=== PATIENT | female | born 1935 | race Caucasian/White ===

== ENCOUNTER → 2017-01-05 | Outpatient (CLI) | payer MEDICARE ==
[~2017-01-05] MED LIST: DENOSUMAB 60 MG/ML 1 ML SYRINGE SQ ONE
[2017-01-05 14:27] VITALS: BP 179/79; PULSE 69; RESP 16; TEMP 97.6
== END | disposition home or self-care (01) ==
LOC: PROCWHC3 14:08
PROVIDERS: ATTEND Family Medicine
DX: M81.0 Age-related osteoporosis without current pathological fracture (principal)
CPT/HCPCS: 96372; J0897

== ENCOUNTER 2019-11-26 13:22 | Inpatient (IN) | payer MEDICARE ==
[2019-11-26] MEDS ORDERED: ACETAMINOPHEN TAB 500 MG TAB PO STA (13:44)
[2019-11-26] MEDS ORDERED: SODIUM CHLORIDE 0.9% 500 ML 500 ML IV ONE (13:44)
--- NOTE | 2019-11-26 14:12 | ED ---
General Adult HPI - General Chief complaint: Fever Stated complaint: Covid Time Seen by Provider: 11/26/19 13:26 Source: patient, RN notes reviewed, old records reviewed Mode of arrival: EMS Limitations: no limitations - History of Present Illness Initial comments: 84-year-old female presenting for evaluation of cough, fever. Patient is coming from assisted living facility where there are several residents with coronavirus. Patient developed a cough last night and was noted to have a fever today. She was sent in for evaluation. Patient's only complaint is sore throat. She denies chest pain. Denies dyspnea. She denies abdominal pain nausea vomiting. - Related Data Home Medications Medication Instructions Recorded Confirmed Hydrocodone/Acetaminophen [[place] 1 tab PO QID PRN 05/25/15 11/26/19 5-325] Acetaminophen [Tylenol] 650 mg PO Q4H PRN MDD 12 tabs/24hr 11/26/19 11/26/19 Acetaminophen [Tylenol] 650 mg PO Q4H PRN MDD 12 tabs/24hr 11/26/19 11/26/19 Cholecalciferol [Vitamin D3 (25 2,000 unit PO DAILY@119911/26/19 11/26/19 Mcg = 1000 Iu)] Citalopram Hydrobromide [CeleXA] 10 mg PO DAILY@119911/26/19 11/26/19 Cyanocobalamin (Vitamin B-12) 1,000 mcg PO HS@199911/26/19 11/26/19 [Vitamin B-12] Diclofenac Sodium Gel [Voltaren 2 gm TOPICAL QID PRN 11/26/19 11/26/19 Gel] Xena-Lanta 485-703-29qi/5ml Susp 15 ml PO BID PRN 11/26/19 11/26/19 Kaolin/Pectin [Kaolin Pectin 2 tsp PO DIRECTED PRN 11/26/19 11/26/19 Suspension] Magnesium Hydroxide [Milk of 2,400 mg PO HS PRN 11/26/19 11/26/19 Magnesia] Melatonin 3 mg PO HS@199911/26/19 11/26/19 Methenamine Hippurate [Hiprex] 0.5 gm PO BID@1199,199911/26/19 11/26/19 Mirtazapine 15 mg PO HS@199911/26/19 11/26/19 Polyethylene Glycol 3350 [Clearlax] 17 gm PO DAILY PRN 11/26/19 11/26/19 guaiFENesin SYRUP 100MG/5ML 10 ml PO Q6H PRN 11/26/19 11/26/19 [Robitussin] Allergies Allergy/AdvReac Type Severity Reaction Status Date / Time celecoxib [From Celebrex] Allergy Unknown Verified 11/26/19 13:46 Review of Systems ROS Statement: Those systems with pertinent positive or pertinent negative responses have been documented in the HPI. ROS Other: All systems not noted in ROS Statement are negative. Past Medical History Past Medical History: Cancer, Hypertension Additional Past Medical History / Comment(s): cataract, skin cancer. History of Any Multi-Drug Resistant Organisms: CRE, Other MDRO Date of last positivie culture/infection: 08/21/19 MDRO Source:: URINE Past Surgical History: Section, Orthopedic Surgery Past Psychological History: No Psychological Hx Reported Smoking Status: Unknown if ever smoked Past Alcohol Use History: None Reported Past Drug Use History: None Reported General Exam Limitations: no limitations General appearance: alert Head exam: Present: atraumatic, normocephalic Eye exam: Present: normal appearance, PERRL ENT exam: Present: mucous membranes dry Neck exam: Present: normal inspection. Absent: tenderness, meningismus Respiratory exam: Present: rhonchi (Bilateral rhonchi) Cardiovascular Exam: Present: normal rhythm, tachycardia GI/Abdominal exam: Present: soft. Absent: distended, tenderness, guarding Extremities exam: Present: normal inspection, normal capillary refill. Absent: pedal edema, calf tenderness Neurological exam: Present: alert. Absent: motor sensory deficit Skin exam: Present: warm, dry, intact. Absent: cyanosis, diaphoretic Course Vital Signs 11/26/19 11/26/19 13:47 14:59 Temperature 101.8 F H 100.3 F H Pulse Rate 106 H 76 Respiratory 20 20 Rate Blood Pressure 195/98 187/94 O2 Sat by Pulse 97 97 Oximetry Medical Decision Making - Medical Decision Making 84-year-old female presenting from outside assisted living facility for evaluation of cough. There was concern for pneumonia. There has been patient's at the facility where she resides with coronavirus. Patient really has no specific complaints, she did complain of some sore throat. She is febrile. She has normal oxygenation on room air. No respiratory distress. Chest x-rays negative for focal pneumonia. She has white blood cell count of 10.6. Creatinine of 1.06 with no baseline. She has a normal lactic acid of 0.9. Coronavirus has been sent these results take approximately 24-48 hours. I did discuss the living situation with the staff at the facility where she resides in the state that patients can be quarantined in the rooms. There is a separate bedroom for each resident and a separate bathroom. Patient remains stable she is a DO NOT RESUSCITATE, DO NOT INTUBATE. I will transfer the patient back to her assisted living facility where she should be quarantined and test results. - Lab Data Result diagrams: 11/26/19 14:03 11/26/19 14:03 Lab Results 11/26/19 11/26/19 11/26/19 Range/Units 14:03 14:03 14:03 WBC 10.6 (3.8-10.6) k/uL RBC 3.97 (3.80-5.40) m/uL Hgb 11.5 (11.4-16.0) gm/dL Hct 36.1 (34.0-46.0) % MCV 90.9 (80.0-100.0) fL MCH 29.1 (25.0-35.0) pg MCHC 31.9 (31.0-37.0) g/dL RDW 13.2 (11.5-15.5) % Plt Count 208 (150-450) k/uL Neutrophils % 87 % Lymphocytes % 7 % Monocytes % 5 % Eosinophils % 0 % Basophils % 0 % Neutrophils # 9.3 H (1.3-7.7) k/uL Lymphocytes # 0.8 L (1.0-4.8) k/uL Monocytes # 0.5 (0-1.0) k/uL Eosinophils # 0.0 (0-0.7) k/uL Basophils # 0.0 (0-0.2) k/uL Sodium 136 L (137-145) mmol/L Potassium 4.2 (3.5-5.1) mmol/L Chloride 105 (98-107) mmol/L Carbon Dioxide 23 (22-30) mmol/L Anion Gap 8 mmol/L BUN 18 H (7-17) mg/dL Creatinine 1.06 H (0.52-1.04) mg/dL Est GFR (CKD-EPI)AfAm 56 (>60 ml/min/1.73 sqM) Est GFR (CKD-EPI)NonAf 48 (>60 ml/min/1.73 sqM) Glucose 112 H (74-99) mg/dL Plasma Lactic Acid Yazan 0.9 (0.7-2.0) mmol/L Calcium 8.8 (8.4-10.2) mg/dL Magnesium 1.7 (1.6-2.3) mg/dL Total Bilirubin 0.5 (0.2-1.3) mg/dL AST 19 (14-36) U/L ALT 6 (4-34) U/L Alkaline Phosphatase 82 (38-126) U/L Total Protein 7.0 (6.3-8.2) g/dL Albumin 3.7 (3.5-5.0) g/dL Disposition Clinical Impression: Viral infection Disposition: HOME SELF-CARE Condition: Fair Instructions (If sedation given, give patient instructions): Fever in Adults (ED), Viral Syndrome (ED) Additional Instructions: I do suspect this patient likely has coronavirus, testing takes approximately 24-48 hours. Please quarantine this patient until test results are available. If test is positive, quarantine for 14 days. Patient should return to the emergency department with bleeding issues. Is patient prescribed a controlled substance at d/c from ED?: No Referrals: Emiliano Bullock MD [Primary Care Provider] - 1-2 days Time of Disposition: 15:07
--- NOTE | 2019-11-26 14:27 | XR ---
EXAMINATION TYPE: XR chest 1V portable DATE OF EXAM: 11/26/2019 COMPARISON: 07/16/2010 INDICATION: Cough TECHNIQUE: Single frontal view of the chest is obtained. FINDINGS: The heart size is normal. The pulmonary vasculature is normal. The lungs are clear. IMPRESSION: 1. No acute pulmonary process.
[2019-11-26 14:31] LABS: Albumin 3.7 g/dL (3.5-5.0); Basophils % (A) 0 %; Calcium 8.8 mg/dL (8.4-10.2); Eosinophils % (A) 0 %; HCT 36.1 % (34.0-46.0); HGB 11.5 gm/dL (11.4-16.0); Lymphocytes # (A) 0.8 k/uL (1.0-4.8); Lymphocytes % (A) 7 %; MCH 29.1 pg (25.0-35.0); MCHC 31.9 g/dL (31.0-37.0); MCV 90.9 fL (80.0-100.0); Magnesium 1.7 mg/dL (1.6-2.3); Mean Platelet Volume 7.2; Monocytes # (A) 0.5 k/uL (0-1.0); Monocytes % (A) 5 %; Neutrophils # (A) 9.3 k/uL (1.3-7.7); Neutrophils % (A) 87 %; Platelet Count 208 k/uL (150-450); Potassium 4.2 mmol/L (3.5-5.1); RBC 3.97 m/uL (3.80-5.40); RDW 13.2 % (11.5-15.5); Total Bilirubin 0.5 mg/dL (0.2-1.3); WBC 10.6 k/uL (3.8-10.6)
[2019-11-26] MEDS ORDERED: NALOXONE 0.4 MG/ML 1 ML VIAL IV PRN (15:38)
--- NOTE | 2019-11-26 15:46 | ED ---
Medical Decision Making - Lab Data Result diagrams: 11/26/19 14:03 11/26/19 14:03 Lab Results 11/26/19 11/26/19 11/26/19 Range/Units 14:03 14:03 14:03 WBC 10.6 (3.8-10.6) k/uL RBC 3.97 (3.80-5.40) m/uL Hgb 11.5 (11.4-16.0) gm/dL Hct 36.1 (34.0-46.0) % MCV 90.9 (80.0-100.0) fL MCH 29.1 (25.0-35.0) pg MCHC 31.9 (31.0-37.0) g/dL RDW 13.2 (11.5-15.5) % Plt Count 208 (150-450) k/uL Neutrophils % 87 % Lymphocytes % 7 % Monocytes % 5 % Eosinophils % 0 % Basophils % 0 % Neutrophils # 9.3 H (1.3-7.7) k/uL Lymphocytes # 0.8 L (1.0-4.8) k/uL Monocytes # 0.5 (0-1.0) k/uL Eosinophils # 0.0 (0-0.7) k/uL Basophils # 0.0 (0-0.2) k/uL Sodium 136 L (137-145) mmol/L Potassium 4.2 (3.5-5.1) mmol/L Chloride 105 (98-107) mmol/L Carbon Dioxide 23 (22-30) mmol/L Anion Gap 8 mmol/L BUN 18 H (7-17) mg/dL Creatinine 1.06 H (0.52-1.04) mg/dL Est GFR (CKD-EPI)AfAm 56 (>60 ml/min/1.73 sqM) Est GFR (CKD-EPI)NonAf 48 (>60 ml/min/1.73 sqM) Glucose 112 H (74-99) mg/dL Plasma Lactic Acid Yazan 0.9 (0.7-2.0) mmol/L Calcium 8.8 (8.4-10.2) mg/dL Magnesium 1.7 (1.6-2.3) mg/dL Total Bilirubin 0.5 (0.2-1.3) mg/dL AST 19 (14-36) U/L ALT 6 (4-34) U/L Alkaline Phosphatase 82 (38-126) U/L Total Protein 7.0 (6.3-8.2) g/dL Albumin 3.7 (3.5-5.0) g/dL Disposition Clinical Impression: Viral infection Disposition: ADMITTED IP TO THIS HOSP Condition: Fair Instructions (If sedation given, give patient instructions): Fever in Adults (ED), Viral Syndrome (ED) Additional Instructions: I do suspect this patient likely has coronavirus, testing takes approximately 24-48 hours. Please quarantine this patient until test results are available. If test is positive, quarantine for 14 days. Patient should return to the emergency department with bleeding issues. Is patient prescribed a controlled substance at d/c from ED?: No Referrals: Emiliano Bullock MD [Primary Care Provider] - 1-2 days Decision to Admit Reason: Admit from EC Decision Date: 11/26/19 Decision Time: 15:46
[2019-11-26] MEDS: ALBUTEROL HFA INHALER INHALATION SCH ×2 (16:38→19:32)
[2019-11-26] MEDS ORDERED: guaiFENesin SYRUP 100MG/5ML 200 MG/10 ML CUP PO PRN (17:30)
[2019-11-26] MEDS ORDERED: polyethylene glycoL 3350 17 GM POWD.PACK PO PRN (17:30)
[2019-11-26] MEDS ORDERED: HYDROcodone/APAP 5-325MG 1 EACH TAB PO PRN (17:30)
[2019-11-26] MEDS ORDERED: DICLOFENAC SODIUM GEL 100 GM TUBE TOPICAL PRN (17:30)
--- NOTE | 2019-11-26 17:39 | P.HPIM ---
History of Present Illness H&P Date: 11/26/19 Chief Complaint: cough Patient's an 84-year-old female with a past medical history of hypertension, arthritis, and chronic indwelling Edwards catheter who was sent in f rom her assisted living secondary to fevers. Apparently there has been multiple residents with COVID 19 per report from the ER. On arrival to the ER here she was noted to be febrile with a temperature of 101.8, pulse of 106, and was satting 97% on room air. Chest x-ray showed no acute process. Initial laboratory analysis showed a sodium of 136, BUN 18, creatinine 1.06. A coronavirus PCR was sent and is pending. Patient was placed in observation for Covid 19 infection. Patient is DO NOT RESUSCITATE which was confirmed by the emergency department physician. Patient seen and examined at bedside. She states that yesterday she started having a nonproductive cough and sore throat. She denies any overt shortness of breath, runny nose, stuffy nose. She was having some diarrhea today. She has not had loss of taste or smell. She feels as though she is eating and drinking well. She states she has had a chronic indwelling Edwards for the past year but she is unsure the exact reason. She states she does not use a cane or a walker but is just learning to walk again. She states that since being in the facility she has become more more week. Review of Systems Pertinent positives and negatives as discussed in HPI, a complete review of systems was performed and all other systems are negative. Past Medical History Past Medical History: Cancer, Hypertension Additional Past Medical History / Comment(s): cataract, skin cancer. History of Any Multi-Drug Resistant Organisms: CRE, Other MDRO Date of last positivie culture/infection: 08/21/19 MDRO Source:: URINE Past Surgical History: Section, Orthopedic Surgery Past Psychological History: No Psychological Hx Reported Smoking Status: Unknown if ever smoked Past Alcohol Use History: None Reported Past Drug Use History: None Reported - Past Family History Father Family Medical History: No Reported History Mother Family Medical History: No Reported History Medications and Allergies Home Medications Medication Instructions Recorded Confirmed Type Hydrocodone/Acetaminophen [[place] 1 tab PO QID PRN 05/25/15 11/26/19 History 5-325] Acetaminophen [Tylenol] 650 mg PO Q4H PRN MDD 12 tabs/24hr 11/26/19 11/26/19 History Acetaminophen [Tylenol] 650 mg PO Q4H PRN MDD 12 tabs/24hr 11/26/19 11/26/19 History Cholecalciferol [Vitamin D3 (25 2,000 unit PO DAILY@119911/26/19 11/26/19 History Mcg = 1000 Iu)] Citalopram Hydrobromide [CeleXA] 10 mg PO DAILY@119911/26/19 11/26/19 History Cyanocobalamin (Vitamin B-12) 1,000 mcg PO HS@199911/26/19 11/26/19 History [Vitamin B-12] Diclofenac Sodium Gel [Voltaren 2 gm TOPICAL QID PRN 11/26/19 11/26/19 History Gel] Xena-Lanta 107-526-72ip/5ml Susp 15 ml PO BID PRN 11/26/19 11/26/19 History Kaolin/Pectin [Kaolin Pectin 2 tsp PO DIRECTED PRN 11/26/19 11/26/19 History Suspension] Magnesium Hydroxide [Milk of 2,400 mg PO HS PRN 11/26/19 11/26/19 History Magnesia] Melatonin 3 mg PO HS@199911/26/19 11/26/19 History Methenamine Hippurate [Hiprex] 0.5 gm PO BID@1199,199911/26/19 11/26/19 History Mirtazapine 15 mg PO HS@199911/26/19 11/26/19 History Polyethylene Glycol 3350 [Clearlax] 17 gm PO DAILY PRN 11/26/19 11/26/19 History guaiFENesin SYRUP 100MG/5ML 10 ml PO Q6H PRN 11/26/19 11/26/19 History [Robitussin] Allergies Allergy/AdvReac Type Severity Reaction Status Date / Time celecoxib [From Celebrex] Allergy Unknown Verified 11/26/19 13:46 Physical Exam Osteopathic Statement: *. No significant issues noted on an osteopathic structural exam other than those noted in the History and Physical/Consult. Vitals: Vital Signs Temp Pulse Resp BP Pulse Ox 11/26/19 16:20 99.1 F 69 18 117/86 97 11/26/19 14:59 100.3 F H 76 20 187/94 97 11/26/19 13:47 101.8 F H 106 H 20 195/98 97 Intake and Output 11/26/19 11/26/19 11/26/19 06:59 14:59 22:59 Other: Weight 47.673 kg General: non toxic, no distress, appears older than stated age, frail, cachectic, temporal wasting Derm: warm, dry Head: atraumatic, normocephalic, symmetric Eyes: EOMI, no lid lag, anicteric sclera, pupils equal round reactive to light ENT: Nose and ears atraumatic, no thrush, no pharyngeal erythema Neck: No thyromegaly, no cervical lymphadenopathy, trachea midline, supple Mouth: no lip lesion, mucus membranes moist Cardiovascular: S1S2 reg, no murmur, positive posterior tibial pulse bilateral, no edema, capillary refill less than 2 seconds Lungs: Rhonchi bilateral, no wheeze, no accessory muscle use Abdominal: soft, nontender to palpation, no guarding, no appreciable organomegaly, normal bowel sounds, Edwards catheter in place Ext: no gross muscle atrophy, muscle strength muscle strength 4 out of 5 in all 4 extremities, no contractures Neuro: CN II-XI grossly intact, light touch intact all 4 extremities, finger to nose on the right Psych: Alert, oriented, appropriate affect Results CBC & Chem 7: 11/26/19 14:03 11/26/19 14:03 Labs: Abnormal Lab Results - Last 24 Hours (Table) 11/26/19 11/26/19 Range/Units 14:03 14:03 Neutrophils # 9.3 H (1.3-7.7) k/uL Lymphocytes # 0.8 L (1.0-4.8) k/uL Sodium 136 L (137-145) mmol/L BUN 18 H (7-17) mg/dL Creatinine 1.06 H (0.52-1.04) mg/dL Glucose 112 H (74-99) mg/dL Chest x-ray: report reviewed Thrombosis Risk Factor Assmnt - DVT/VTE Prophylaxis DVT/VTE Prophylaxis: Low risk, early ambulation encouraged Assessment and Plan Assessment: Upper respiratory tract infection with concern for occult at 19 -Await Ng virus PCR -Check d-dimer, ferritin, LDH, CPK -Will not check troponins would not alter the course of current level of care -Monitor for signs of hypoxia and-we will repeat chest x-ray in a.m. Arthritis -Continue with patient's [place] and dalteparin gel Insomnia -Continue with Remeron and melatonin The patient is placed in observation with an anticipated less than 2 midnight stay for evaluation of URI. Surrogate decision-maker: Daughter CODE STATUS: DNR DVT prophylaxis: lOVENOX Discussed with: Patient, nursing, ED physician Anticipated discharge date: in AM Anticipated discharge place: Assisted living A total of 45 minutes was spent on the care of this complex patient more than 50% of the time was spent in counseling and care coordination.
[2019-11-26 17:59] LABS: C Reactive Protein 45.8 mg/L (<10.0)
[2019-11-26] MEDS: MELATONIN 3 MG TABLET PO SCH ×2 (22:27→22:28)
[2019-11-26] MEDS: SODIUM CHLORIDE 0.9% 1,000 ML IV SCH (22:28)
[2019-11-26] MEDS: MIRTAZAPINE 15 MG TAB PO SCH (22:29)
[2019-11-26] MEDS: NON FORMULARY DRUG (Methenamine Hippurate [Hiprex] 1 GM Tablet) PO SCH (22:29)
[2019-11-26] MEDS ORDERED: hydrALAZINE HCL 50 MG TAB PO STA (23:38)
[2019-11-27] MEDS ORDERED: hydrALAZINE HCL 50 MG TAB PO ONE (02:13)
[2019-11-27 03:02] LABS: Ferritin 378.2 ng/mL (10.0-291.0)
[2019-11-27] MEDS: SODIUM CHLORIDE 0.9% 1,000 ML IV SCH ×2 (03:58→19:57)
[2019-11-27] MEDS: ENOXAPARIN 40 MG/0.4 ML SYRINGE SQ SCH (07:20)
[2019-11-27 07:33] LABS: Basophils % (A) 0 %; Eosinophils % (A) 0 %; HCT 34.5 % (34.0-46.0); HGB 11.2 gm/dL (11.4-16.0); Lymphocytes # (A) 0.8 k/uL (1.0-4.8); Lymphocytes % (A) 8 %; MCH 29.7 pg (25.0-35.0); MCHC 32.5 g/dL (31.0-37.0); MCV 91.6 fL (80.0-100.0); Mean Platelet Volume 7.7; Monocytes # (A) 0.5 k/uL (0-1.0); Monocytes % (A) 5 %; Neutrophils # (A) 8.4 k/uL (1.3-7.7); Neutrophils % (A) 86 %; Platelet Count 203 k/uL (150-450); RBC 3.77 m/uL (3.80-5.40); RDW 13.2 % (11.5-15.5); WBC 9.7 k/uL (3.8-10.6)
[2019-11-27] MEDS: ALBUTEROL HFA INHALER INHALATION SCH ×4 (08:38→19:58)
[2019-11-27 11:12] LABS: INR 0.98 (0.90-1.11); Prothrombin Time 10.5 sec (9.9-11.9)
[2019-11-27 12:02] LABS: Appearance,Urine Turbid (Clear); Bilirubin,Urine Negative (Negative); Blood,Urine Trace (Negative); Color,Urine Yellow; Glucose,Urine (UA) Negative (Negative); Ketones,Urine 2+ (Negative); Nitrite,Urine Positive (Negative); Protein,Urine 1+ (Negative); Specific Gravity,Urine 1.019 (1.001-1.035); Urobilinogen,Urine <2.0 mg/dL (<2.0)
[2019-11-27 12:03] LABS: Bacteria,Urine Few /hpf; Leukocyte Esterase,Urine Large (Negative); RBC,Urine 17 /hpf (0-5); Squamous Epithelial Cell,Urine 3 /hpf (0-4); WBC,Urine >182 /hpf (0-5)
[2019-11-27] MEDS: NON FORMULARY DRUG (Methenamine Hippurate [Hiprex] 1 GM Tablet) PO SCH ×2 (12:46→19:58)
[2019-11-27 13:00] LABS: ALT <8 U/L (8-44); AST 15 U/L (13-35); African American GFR (CKD) 68.1 (60.0-200.0); Albumin/Globulin Ratio 1.59 (1.60-3.17); Alkaline Phosphatase 70 U/L (41-126); BUN/Creat Ratio 18.89 Ratio (12.00-20.00); Calcium 8.4 mg/dL (8.7-10.3); Carbon Dioxide 20.9 mmol/L (21.6-31.8); Chloride 104 mmol/L (96-109); Creatine Kinase 39 U/L (26-186); Ferritin 402.9 ng/mL (10.0-291.0); Globulin 2.2 g/dL (1.6-3.3); Glucose 80 mg/dL (70-110); LDH 177 U/L (120-246); Non-African American GFR(CKD) 58.7 (60.0-200.0); Potassium 3.9 mmol/L (3.5-5.5); Sodium 137 mmol/L (135-145); Total Bilirubin 0.4 mg/dL (0.2-1.2); Total Protein 5.7 g/dL (6.2-8.2)
[2019-11-27 13:06] LABS: C Reactive Protein 7.4 mg/dL (0.0-0.8)
--- NOTE | 2019-11-27 14:50 | XR ---
EXAMINATION TYPE: XR chest 1V portable DATE OF EXAM: 11/27/2019 COMPARISON: 11/26/2019 HISTORY: Cough TECHNIQUE: Single frontal view of the chest is obtained. FINDINGS: Exam limited by patient rotation. No obvious area of pneumothorax or pleural effusion. Car diomegaly and underlying COPD with degenerative change of the spine. Arthropathy, diffuse osteopenia and atherosclerotic change aorta. Subsegmental changes at the left lung base. IMPRESSION: 1. COPD. With left basilar atelectasis versus early infiltrate. Favor atelectasis. 2.. Patchy density seen in the right upper lobe on the prior exam appears to have resolved.
[2019-11-27] MEDS: CITALOPRAM HYDROBROMIDE 10 MG TAB PO SCH (15:11)
[2019-11-27 15:45] VITALS: BMI 18.0
[2019-11-27] MEDS: ACETAMINOPHEN TAB 325 MG TAB PO PRN (16:28)
--- NOTE | 2019-11-27 19:35 | P.PN ---
Subjective Progress Note Date: 11/27/19 Principal diagnosis: cough Patient's an 84-year-old female with a past medical history of hypertension, arthritis, and chronic indwelling Bird catheter who was sent in f rom her assisted living secondary to fevers. Apparently there has been multiple residents with COVID 19 per report from the ER. On arrival to the ER here she was noted to be febrile with a temperature of 101.8, pulse of 106, and was satting 97% on room air. Chest x-ray showed no acute process. Initial laboratory analysis showed a sodium of 136, BUN 18, creatinine 1.06. A coronavirus PCR was sent and is pending. Patient was placed in observation for Covid 19 infection. Patient is DO NOT RESUSCITATE which was confirmed by the emergency department physician. Her initial Covid 19 testing was negative but her O2 requirements increased. She remained a febrile after admission. Patient seen and examined at bedside. No chest pain, still with cough, no nausea or vomiting. Denies abdominal pain General: non toxic, no distress, appears at stated age Derm: warm, dry Head: atraumatic, normocephalic, symmetric Eyes: EOMI, no lid lag, anicteric sclera Mouth: no lip lesion, mucus membranes moist Cardiovascular: S1S2 reg, no murmur, positive posterior tibial pulse bilateral, Lungs: CTA bilateral, no rhonchi, no rales , no accessory muscle use Abdominal: soft, nontender to palpation, no guarding, no appreciable organomegaly Ext: no gross muscle atrophy, no edema, no contractures Neuro: CN II-XI grossly intact, no focal neuro deficits Psych: Alert, oriented, appropriate affect Upper respiratory tract infection with concern for COVID 19, fever -COVID PCR negative, will recheck - O2 requirement increasing - Check for UTI due to fevers with chronic bird, no ANX at this time unles spikes fever again, suprapubic pain, or elevating WBC - recheck d-dimer, ferritin, LDH, CPK in AM - Will not check troponins would not alter the course of current level of care - Atelectasis left base on CXR Arthritis -Continue with patient's [place] and dalteparin gel Insomnia -Continue with Remeron and melatonin Discussed with daughter and updated on plan of care. We'll continue to monitor overnight. Recheck Covid 19 swab, recheck Covid laboratory analysis, monitored for elevated white blood cell count/suprapubic pain/fevers if this occurs will start antibiotics possible urinary tract infection. Objective - Vital Signs Vital signs: Vital Signs Temp 100.4 F H 11/27/19 14:57 Pulse 90 11/27/19 14:57 Resp 19 11/27/19 14:57 BP 165/78 11/27/19 14:57 Pulse Ox 97 11/27/19 14:57 Intake & Output 11/27/19 11/27/19 11/28/19 06:59 18:59 06:59 Intake Total 200 Output Total 400 150 Balance -200 -150 Weight 47.673 kg 47.673 kg Intake: Oral 200 Output: Urine 400 150 Other: Voiding Method Indwelling Catheter Indwelling Catheter # Bowel Movements 1 - Labs CBC & Chem 7: 11/27/19 06:54 11/27/19 06:54 Labs: Abnormal Lab Results - Last 24 Hours (Table) 11/26/19 11/27/19 11/27/19 Range/Units 14:03 06:54 06:54 RBC 3.77 L (3.80-5.40) m/uL Hgb 11.2 L (11.4-16.0) gm/dL Neutrophils # 8.4 H (1.3-7.7) k/uL Lymphocytes # 0.8 L (1.0-4.8) k/uL Carbon Dioxide 20.9 L (21.6-31.8) mmol/L Anion Gap 12.10 H (4.00-12.00) mmol/L Est GFR (CKD-EPI)NonAf 58.7 L (60.0-200.0) Calcium 8.4 L (8.7-10.3) mg/dL Ferritin 378.2 H 402.9 H (10.0-291.0) ng/mL ALT <8 L (8-44) U/L C-Reactive Protein 7.4 H (0.0-0.8) mg/dL Total Protein 5.7 L (6.2-8.2) g/dL Albumin 3.50 L (3.80-4.90) g/dL Albumin/Globulin Ratio 1.59 L (1.60-3.17) g/dL Urine Appearance (Clear) Urine Protein (Negative) Urine Ketones (Negative) Urine Blood (Negative) Urine Nitrite (Negative) Ur Leukocyte Esterase (Negative) Urine RBC (0-5) /hpf Urine WBC (0-5) /hpf Urine Bacteria (None) /hpf 11/27/19 Range/Units 11:30 RBC (3.80-5.40) m/uL Hgb (11.4-16.0) gm/dL Neutrophils # (1.3-7.7) k/uL Lymphocytes # (1.0-4.8) k/uL Carbon Dioxide (21.6-31.8) mmol/L Anion Gap (4.00-12.00) mmol/L Est GFR (CKD-EPI)NonAf (60.0-200.0) Calcium (8.7-10.3) mg/dL Ferritin (10.0-291.0) ng/mL ALT (8-44) U/L C-Reactive Protein (0.0-0.8) mg/dL Total Protein (6.2-8.2) g/dL Albumin (3.80-4.90) g/dL Albumin/Globulin Ratio (1.60-3.17) g/dL Urine Appearance Turbid H (Clear) Urine Protein 1+ H (Negative) Urine Ketones 2+ H (Negative) Urine Blood Trace H (Negative) Urine Nitrite Positive H (Negative) Ur Leukocyte Esterase Large H (Negative) Urine RBC 17 H (0-5) /hpf Urine WBC >182 H (0-5) /hpf Urine Bacteria Few H (None) /hpf Microbiology - Last 24 Hours (Table) 11/27/19 11:30 Urine Culture - Preliminary Urine,Voided 11/26/19 14:06 Blood Culture - Preliminary Blood No Growth after 24 hours
[2019-11-27] MEDS: MELATONIN 3 MG TABLET PO SCH (20:07)
[2019-11-27] MEDS: MIRTAZAPINE 15 MG TAB PO SCH (20:13)
[2019-11-28 06:44] LABS: Basophils % (A) 1 %; Eosinophils % (A) 0 %; HCT 34.8 % (34.0-46.0); Lymphocytes # (A) 0.9 k/uL (1.0-4.8); Lymphocytes % (A) 12 %; MCHC 31.5 g/dL (31.0-37.0); Mean Platelet Volume 7.5; Monocytes # (A) 0.4 k/uL (0-1.0); Monocytes % (A) 5 %; Neutrophils # (A) 6.3 k/uL (1.3-7.7); Neutrophils % (A) 81 %; Platelet Count 204 k/uL (150-450); RBC 3.78 m/uL (3.80-5.40); RDW 12.9 % (11.5-15.5); WBC 7.7 k/uL (3.8-10.6)
--- NOTE | 2019-11-28 07:24 | XR ---
EXAMINATION TYPE: XR chest 1V portable DATE OF EXAM: 11/28/2019 COMPARISON: 11/28/2019 HISTORY: Cough TECHNIQUE: Single frontal view of the chest is obtained. FINDINGS: Hyperinflation compatible COPD and there is left lower lobe infiltrate. No pneumothorax. N o interstitial edema. Heart size stable. Atherosclerotic change aorta. Diffuse osteopenia and arthrop athy of the shoulders. IMPRESSION: COPD with left lower lobe infiltrate.
[2019-11-28] MEDS: ALBUTEROL HFA INHALER INHALATION SCH ×5 (08:39→20:35)
[2019-11-28] MEDS: NON FORMULARY DRUG (Methenamine Hippurate [Hiprex] 1 GM Tablet) PO SCH ×2 (10:19→22:40)
[2019-11-28] MEDS: AZITHROMYCIN 500 MG TAB PO SCH (10:34)
[2019-11-28] MEDS: ENOXAPARIN 40 MG/0.4 ML SYRINGE SQ SCH (10:34)
[2019-11-28] MEDS: dexAMETHasone 2 MG TAB PO SCH (10:34)
[2019-11-28] MEDS: CITALOPRAM HYDROBROMIDE 10 MG TAB PO SCH (10:34)
[2019-11-28] MEDS: SODIUM CHLORIDE 0.9% 1,000 ML IV SCH ×2 (10:35→23:06)
[2019-11-28] MEDS ORDERED: hydrALAZINE HCL 25 MG TAB PO STA (11:44)
[2019-11-28] MEDS: amLODIPine 5 MG TAB PO SCH (12:32)
[2019-11-28 13:07] LABS: African American GFR (CKD) 59.9 (60.0-200.0); Anion Gap 10.2 mmol/L (4.00-12.00); C Reactive Protein 11.6 mg/dL (0.0-0.8); Calcium 8.8 mg/dL (8.7-10.3); Carbon Dioxide 23.8 mmol/L (21.6-31.8); Ferritin 509.8 ng/mL (10.0-291.0); Non-African American GFR(CKD) 51.7 (60.0-200.0); Potassium 4.2 mmol/L (3.5-5.5)
--- NOTE | 2019-11-28 16:50 | P.PN ---
Subjective Progress Note Date: 11/28/19 (delayed charting seen at 1035) Principal diagnosis: cough Patient's an 84-year-old female with a past medical history of hypertension, arthritis, and chronic indwelling Bird catheter who was sent in from her assisted living secondary to fevers. Apparently there has been multiple residents with COVID 19 per report from the ER. On arrival to the ER here she was noted to be febrile with a temperature of 101.8, pulse of 106, and was satting 97% on room air. Chest x-ray showed no acute process. Initial laboratory analysis showed a sodium of 136, BUN 18, creatinine 1.06. A coronavirus PCR was sent and is pending. Patient was placed in observation for Covid 19 infection. Patient is DO NOT RESUSCITATE which was confirmed by the emergency department physician. Her initial Covid 19 testing was negative but her O2 requirements increased. She remained a febrile after admission. COVID was resent but is pending due to O2 she was started on dexamethasone until COVID available. CXR showed left sided infiltrate and she was started on rocephin and zithromax. 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 Patient seen and examined at bedside. States that she is breathing fine, reports that cough is getting better. No nausea, vomiting. States she has been eating well. General: non toxic, no distress, appears at stated age Derm: warm, dry Head: atraumatic, normocephalic, symmetric Eyes: EOMI, no lid lag, anicteric sclera Mouth: no lip lesion, mucus membranes moist Cardiovascular: S1S2 reg, no murmur, positive posterior tibial pulse bilateral, Lungs: Rhonchi left base, no accessory muscle use Abdominal: soft, nontender to palpation, no guarding, no appreciable organomegaly Ext: no gross muscle atrophy, no edema, no contractures Neuro: CN II-XI grossly intact, no focal neuro deficits Psych: Alert, oriented, appropriate affect Left Pneumonia with concern for COVID 19, fever - COVID PCR negative, awaiting recheck - O2 requirement increasing and started on dexamethasone - Chest x-ray small left-sided infiltrate. Patient was started on Rocephin and Zithromax. - Will not check troponins would not alter the course of current level of care - Atelectasis left base on CXR -CRP has been down trending, CPK has been negative, liver enzymes negative and recheck, ferritin 509, d-dimer admission 0.81. Will not plan on rechecking these labs at this time. Arthritis -Continue with patient's [place] and dalteparin gel Insomnia -Continue with Remeron and melatonin Discussed with daughter and updated on plan of care. Recheck chest x-ray in a.m., monitor for recurrent fever that she did have one on 11/26 and would want her fever free for 24 hours before discharge. She is aware that patient may be discharged tomorrow if Covid is negative and she does not spike an additional fever, or have increasing oxygen requirements. Objective - Vital Signs Vital signs: Vital Signs Temp 98.3 F 11/28/19 15:00 Pulse 111 H 11/28/19 15:00 Resp 18 11/28/19 15:00 BP 156/84 11/28/19 15:00 Pulse Ox 95 11/28/19 15:00 Intake & Output 11/27/19 11/28/19 11/28/19 18:59 06:59 18:59 Intake Total 200 240 Output Total 150 700 Balance -150 -500 240 Weight 47.673 kg Intake: Oral 200 240 Output: Urine 150 700 Other: Voiding Method Indwelling Catheter Indwelling Catheter Indwelling Catheter # Bowel Movements 1 - Labs CBC & Chem 7: 11/28/19 05:59 11/28/19 05:59 Labs: Abnormal Lab Results - Last 24 Hours (Table) 11/28/19 11/28/19 Range/Units 05:59 05:59 RBC 3.78 L (3.80-5.40) m/uL Hgb 11.0 L (11.4-16.0) gm/dL Lymphocytes # 0.9 L (1.0-4.8) k/uL Est GFR (CKD-EPI)AfAm 59.9 L (60.0-200.0) Est GFR (CKD-EPI)NonAf 51.7 L (60.0-200.0) Ferritin 509.8 H (10.0-291.0) ng/mL C-Reactive Protein 11.6 H (0.0-0.8) mg/dL Microbiology - Last 24 Hours (Table) 11/26/19 14:06 Blood Culture - Preliminary Blood No Growth after 48 hours 11/27/19 11:30 Urine Culture - Preliminary Urine,Voided
[2019-11-28] MEDS: MELATONIN 3 MG TABLET PO SCH (22:39)
[2019-11-28] MEDS: MIRTAZAPINE 15 MG TAB PO SCH (22:40)
[2019-11-29] MEDS: AZITHROMYCIN 500 MG TAB PO SCH (07:12)
[2019-11-29] MEDS: amLODIPine 5 MG TAB PO SCH (07:12)
[2019-11-29] MEDS: ENOXAPARIN 40 MG/0.4 ML SYRINGE SQ SCH (07:13)
[2019-11-29] MEDS: dexAMETHasone 2 MG TAB PO SCH (07:13)
[2019-11-29] MEDS: ALBUTEROL HFA INHALER INHALATION SCH ×4 (07:43→19:30)
[2019-11-29 07:44] LABS: HCT 34.3 % (34.0-46.0); HGB 11.2 gm/dL (11.4-16.0); MCH 29.7 pg (25.0-35.0); MCHC 32.5 g/dL (31.0-37.0); MCV 91.2 fL (80.0-100.0); Mean Platelet Volume 7.8; Platelet Count 219 k/uL (150-450); RBC 3.76 m/uL (3.80-5.40); RDW 13.1 % (11.5-15.5)
[2019-11-29] MEDS: SODIUM CHLORIDE 0.9% 1,000 ML IV SCH (11:30)
[2019-11-29] MEDS: CITALOPRAM HYDROBROMIDE 10 MG TAB PO SCH (11:31)
[2019-11-29] MEDS: NON FORMULARY DRUG (Methenamine Hippurate [Hiprex] 1 GM Tablet) PO SCH ×2 (11:31→21:15)
[2019-11-29 12:21] LABS: African American GFR (CKD) 68.1 (60.0-200.0); Anion Gap 8.8 mmol/L (4.00-12.00); BUN/Creat Ratio 22.22 Ratio (12.00-20.00); C Reactive Protein 11.9 mg/dL (0.0-0.8); Calcium 8.7 mg/dL (8.7-10.3); Carbon Dioxide 22.2 mmol/L (21.6-31.8); Non-African American GFR(CKD) 58.7 (60.0-200.0); Potassium 4.2 mmol/L (3.5-5.5)
[2019-11-29 12:36] LABS: Ferritin 517.3 ng/mL (10.0-291.0)
[2019-11-29] MEDS: guaiFENesin 600 MG TABLET.ER PO SCH ×2 (14:53→21:29)
[2019-11-29] MEDS: MELATONIN 3 MG TABLET PO SCH (21:29)
[2019-11-29] MEDS: MIRTAZAPINE 15 MG TAB PO SCH (21:29)
--- NOTE | 2019-11-29 22:21 | P.PN ---
Progress Note - Text Progress Note Date: 11/29/19 Presenting complaint: Cough Interim history: Patient's an 84-year-old female with a past medical history of hypertension, arthritis, and chronic indwelling Bird catheter who was sent in from her assisted living secondary to fevers. Apparently there has been multiple residents with COVID 19 per report from the ER. On arrival to the ER here she was noted to be febrile with a temperature of 101.8, pulse of 106, and was satting 97% on room air. Chest x-ray showed no acute process. Initial laboratory analysis showed a sodium of 136, BUN 18, creatinine 1.06. A coronavirus PCR negative Patient was placed in observation for Covid 19 infection. CXR showed left sided infiltrate and she was started on rocephin and zithromax. 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 Today-patient is propped up in bed. Eating fairly well. Has a bit of a cough. Unable to expectorate. No fever. Overall feels better. Review of systems: Was done for constitutional, cardiovascular, GI, pulmonary. relevant finding as above Active Medications Acetaminophen (Acetaminophen Tab 325 Mg Tab) 650 mg PO Q6HR PRN PRN Reason: Mild Pain or Fever > 100.5 Last Admin: 11/27/19 16:28 Dose: 650 mg Documented by: Hydrocodone Bitart/Acetaminophen (Hydrocodone/Apap 5-325mg 1 Each Tab) 1 each PO QID PRN PRN Reason: Pain Albuterol Sulfate (Albuterol Hfa Inhaler) 2 puff INHALATION RT-QID [facility] Last Admin: 11/29/19 19:30 Dose: Not Given Documented by: Amlodipine Besylate (Amlodipine 5 Mg Tab) 5 mg PO DAILY [facility] Last Admin: 11/29/19 07:12 Dose: 5 mg Documented by: Azithromycin (Azithromycin 500 Mg Tab) 500 mg PO DAILY [facility] Last Admin: 11/29/19 07:12 Dose: 500 mg Documented by: Citalopram Hydrobromide (Citalopram Hydrobromide 10 Mg Tab) 10 mg PO DAILY@1200 [facility] Last Admin: 11/29/19 11:31 Dose: 10 mg Documented by: Dexamethasone (Dexamethasone 2 Mg Tab) 6 mg PO DAILY [facility] Last Admin: 11/29/19 07:13 Dose: 6 mg Documented by: Diclofenac Sodium (Diclofenac Sodium Gel 100 Gm Tube) 2 gm TOPICAL QID PRN PRN Reason: Pain Enoxaparin Sodium (Enoxaparin 40 Mg/0.4 Ml Syringe) 40 mg SQ Q24HR [facility] Last Admin: 11/29/19 07:13 Dose: 40 mg Documented by: Guaifenesin (Guaifenesin 600 Mg Tablet.Er) 1,200 mg PO Q12HR [facility] Last Admin: 11/29/19 21:29 Dose: 1,200 mg Documented by: Ceftriaxone Sodium 1 gm/ (Sodium Chloride) 50 mls @ 100 mls/hr IVPB Q24HR [facility] Last Admin: 11/29/19 07:12 Dose: 100 mls/hr Documented by: Melatonin (Melatonin 3 Mg Tablet) 3 mg PO HS@1999 [facility] Last Admin: 11/29/19 21:29 Dose: 3 mg Documented by: Mirtazapine (Mirtazapine 15 Mg Tab) 15 mg PO HS@1999 [facility] Last Admin: 11/29/19 21:29 Dose: 15 mg Documented by: Naloxone HCl (Naloxone 0.4 Mg/Ml 1 Ml Vial) 0.2 mg IV Q2M PRN PRN Reason: Opioid Reversal Non-Formulary Medication (Methenamine Hippurate [Hiprex]) 0.5 gm PO BID@1199,1999 [facility] Last Admin: 11/29/19 21:15 Dose: Not Given Documented by: Polyethylene Glycol (Polyethylene Glycol 3350 17 Gm Powd.Pack) 17 gm PO DAILY PRN PRN Reason: Constipation On examination: VITAL SIGNS: 97.9, 77, 17, 118/74, 93% on room air GENERAL APPEARANCE: Propper in bed, awake, comfortable. HEENT: Normal external appearance of nose and ear. Oral cavity normal EYES: Pupils equal. Conjunctiva normal. NECK: JVD not raised. Mass not palpable. RESPIRATORY: Respiratory effort increased Lungs creased breath sounds CARDIOVASCULAR: First and second sounds normal. No edema. MUSCULOSKELETAL-evidence of OA ABDOMEN: Soft. Liver and spleen not palpable. No tenderness. No mass palpable. Bird catheter PSYCHIATRY: Alert and oriented x3. Mood and affect normal. INVESTIGATIONS, reviewed in the clinical context: White count 8 hemoglobin 11.2 platelets 219 potassium 4.2 creatinine 0.9 UA positive for nitrite, leuk trase trace, WBC COVID 19 P/Cr-not detected Check stat x-ray film-possible infiltrate Urine culture-E. coli Assessment: -Left lower lobe pneumonia, suspect gram-negative organism, POA -COVID 19 PCR negative -Primary osteoarthritis -Chronic insomnia idiopathic -Essential hypertension -Chronic medical debility -DO NOT RESUSCITATE Plan: Continue patient for one more day of ceftriaxone. Add Mucinex. 1200 mg twice a day. Discussed with the patient. Hopefully discharge tomorrow.
[2019-11-30] MEDS: guaiFENesin 600 MG TABLET.ER PO SCH (07:25)
[2019-11-30] MEDS: amLODIPine 5 MG TAB PO SCH (07:25)
[2019-11-30] MEDS: ENOXAPARIN 40 MG/0.4 ML SYRINGE SQ SCH (07:26)
[2019-11-30] MEDS: AZITHROMYCIN 500 MG TAB PO SCH (07:26)
[2019-11-30] MEDS: dexAMETHasone 2 MG TAB PO SCH (07:26)
[2019-11-30] MEDS: ALBUTEROL HFA INHALER INHALATION SCH ×3 (07:57→15:46)
[2019-11-30] MEDS: NON FORMULARY DRUG (Methenamine Hippurate [Hiprex] 1 GM Tablet) PO SCH (11:32)
[2019-11-30] MEDS: CITALOPRAM HYDROBROMIDE 10 MG TAB PO SCH (11:33)
[2019-11-30 15:30] VITALS: BP 108/69; PULSE 81; RESP 18; TEMP 97.7
[2019-11-30] MEDS: ACETAMINOPHEN TAB 325 MG TAB PO PRN (16:40)
--- NOTE | 2019-11-30 23:08 | P.DS ---
Providers Date of admission: 11/28/19 07:55 Expected date of discharge: 11/30/19 Attending physician: Dioni Montalvo Primary care physician: U[facility] Hospital Course: Presenting complaint: Cough Interim history: Patient's an 84-year-old female with a past medical history of hypertension, arthritis, and chronic indwelling Edwards catheter who was sent in from her assisted living secondary to fevers. Apparently there has been multiple residents with COVID 19 per report from the ER. On arrival to the ER here she was noted to be febrile with a temperature of 101.8, pulse of 106, and was satting 97% on room air. Chest x-ray showed no acute process. Initial laboratory analysis showed a sodium of 136, BUN 18, creatinine 1.06. A coronavirus PCR negative Patient was placed in observation for Covid 19 infection. CXR showed left sided infiltrate and she was started on rocephin and zithromax. UA obtained but currently patient without suprapubic pain and suspect possible chronic bacteriuria from Edwards catheter. Today-breathing better. Some cough present. Eating well. Keen to go back. On examination: VITAL SIGNS: 97.7, 81, 18, 108/69, 93% on room air GENERAL APPEARANCE: Propped in bed, awake, comfortable. EYES: Pupils equal. Conjunctiva normal. NECK: JVD not raised. Mass not palpable. RESPIRATORY: Respiratory effort increased Lungs creased breath sounds CARDIOVASCULAR: First and second sounds normal. No edema. MUSCULOSKELETAL-evidence of OA ABDOMEN: Soft. Liver and spleen not palpable. No tenderness. No mass palpable. Edwards catheter PSYCHIATRY: Alert and oriented x3. Mood and affect normal. INVESTIGATIONS, reviewed in the clinical context: White count 8 hemoglobin 11.2 platelets 219 potassium 4.2 creatinine 0.9 UA positive for nitrite, leuk trase trace, WBC COVID 19 P/Cr-not detected Check stat x-ray film-possible infiltrate Urine culture-E. coli Assessment: -Left lower lobe pneumonia, suspect gram-negative organism, POA -COVID 19 PCR negative -Primary osteoarthritis -Chronic insomnia idiopathic -Essential hypertension -Chronic medical debility -DO NOT RESUSCITATE Disposition: [id number] Patient Condition at Discharge: Stable Plan - Discharge Summary Discharge Rx Participant: No New Discharge Prescriptions: New Cefuroxime Axetil [Ceftin] 500 mg PO BID 1 Days #6 tab guaiFENesin [Mucinex] 1,200 mg PO Q12HR #20 tablet.er amLODIPine [Norvasc] 5 mg PO DAILY #30 tab Continue Hydrocodone/Acetaminophen [[place] 5-325] 1 tab PO QID PRN PRN Reason: Pain Diclofenac Sodium Gel [Voltaren Gel] 2 gm TOPICAL QID PRN PRN Reason: Pain Mirtazapine 15 mg PO HS@1999 Melatonin 3 mg PO HS@1999 Citalopram Hydrobromide [CeleXA] 10 mg PO DAILY@1199 Cholecalciferol [Vitamin D3 (25 Mcg = 1000 Iu)] 2,000 unit PO DAILY@1199 Cyanocobalamin (Vitamin B-12) [Vitamin B-12] 1,000 mcg PO HS@1999 Methenamine Hippurate [Hiprex] 0.5 gm PO BID@1199,1999 Acetaminophen [Tylenol] 650 mg PO Q4H PRN MDD 12 tabs/24hr PRN Reason: Fever And/ Or Pain Magnesium Hydroxide [Milk of Magnesia] 2,400 mg PO HS PRN PRN Reason: Constipation Kaolin/Pectin [Kaolin Pectin Suspension] 2 tsp PO DIRECTED PRN PRN Reason: Constipation Polyethylene Glycol 3350 [Clearlax] 17 gm PO DAILY PRN PRN Reason: Constipation Xena-L[place] [phone]/5ml Susp 15 ml PO BID PRN PRN Reason: Heartburn Discontinued guaiFENesin SYRUP 100MG/5ML [Robitussin] 10 ml PO Q6H PRN PRN Reason: Cough Acetaminophen [Tylenol] 650 mg PO Q4H PRN MDD 12 tabs/24hr PRN Reason: Headache Discharge Medication List Hydrocodone/Acetaminophen [[place] 5-325] 1 tab PO QID PRN 05/25/15 [History] Acetaminophen [Tylenol] 650 mg PO Q4H PRN MDD 12 tabs/24hr 11/26/19 [History] Cholecalciferol [Vitamin D3 (25 Mcg = 1000 Iu)] 2,000 unit PO DAILY@119911/26/19 [History] Citalopram Hydrobromide [CeleXA] 10 mg PO DAILY@119911/26/19 [History] Cyanocobalamin (Vitamin B-12) [Vitamin B-12] 1,000 mcg PO HS@199911/26/19 [History] Diclofenac Sodium Gel [Voltaren Gel] 2 gm TOPICAL QID PRN 11/26/19 [History] Xena-L[place] [phone]/5ml Susp 15 ml PO BID PRN 11/26/19 [History] Kaolin/Pectin [Kaolin Pectin Suspension] 2 tsp PO DIRECTED PRN 11/26/19 [History] Magnesium Hydroxide [Milk of Magnesia] 2,400 mg PO HS PRN 11/26/19 [History] Melatonin 3 mg PO HS@199911/26/19 [History] Methenamine Hippurate [Hiprex] 0.5 gm PO BID@1200,199911/26/19 [History] Mirtazapine 15 mg PO HS@199911/26/19 [History] Polyethylene Glycol 3350 [Clearlax] 17 gm PO DAILY PRN 11/26/19 [History] Cefuroxime Axetil [Ceftin] 500 mg PO BID 1 Days #6 tab 11/30/19 [Rx] amLODIPine [Norvasc] 5 mg PO DAILY #30 tab 11/30/19 [Rx] guaiFENesin [Mucinex] 1,200 mg PO Q12HR #20 tablet.er 11/30/19 [Rx] Follow up Appointment(s)/Referral(s): [facility], [NON-STAFF] - Emiliano Bullock MD [Primary Care Provider] - 12/04/19 (Office will call you with appointment time. This will be a tele visit. Thank you.) Patient Instructions/Handouts: Fever in Adults (ED), Viral Syndrome (ED) Activity/Diet/Wound Care/Special Instructions: I do suspect this patient likely has coronavirus, testing takes approximately 24-48 hours. Please quarantine this patient until test results are available. If test is positive, quarantine for 14 days. Patient should return to the emergency department with bleeding issues. --- 11-30-2019 covid test was negative patient being discharged with a flutter valve for cough she should use this during commercial breaks or a couple times per hour. She maintained 95% oxygen saturation on room air when assessed. Continue to encourage coughing/ flutter valve to help with her moist cough Her scripts are hand written and will be attached to discharge paperwork Discharge Disposition: TRANSFER TO SNF/ECF
== END 2019-11-30 16:44 | disposition home health service (06) | DRG 178 ==
LOC: EC 13:22 → 4SSUR 15:38 → OBSVTOIN 11-28 07:55
PROVIDERS: ADMIT Hospitalist; ATTEND Hospitalist
DX: J15.6 Pneumonia due to other Gram-negative bacteria (principal); R64 Cachexia; Z68.1 Body mass index [BMI] 19.9 or less, adult; J98.11 Atelectasis; Z20.828 Contact with and (suspected) exposure to other viral communicable diseases; F51.04 Psychophysiologic insomnia; I10 Essential (primary) hypertension; R82.71 Bacteriuria; M19.91 Primary osteoarthritis, unspecified site; Z66 Do not resuscitate; R53.81 Other malaise; Z79.899 Other long term (current) drug therapy; Z85.828 Personal history of other malignant neoplasm of skin; Z88.6 Allergy status to analgesic agent; Z86.19 Personal history of other infectious and parasitic diseases; Z98.890 Other specified postprocedural states; Z98.891 History of uterine scar from previous surgery
CPT/HCPCS: 36415; 71045; 80048; 80053; 81001; 82550; 82728; 83605; 83615; 83735; 85025; 85027; 85379; 85610; 86140; 87040; 87077; 87086; 87186; 87502; 94640; 94667; 96360; 96361; 99285